=== PATIENT | male | born 2005 | race African-American/Black ===

== ENCOUNTER 2024-01-11 21:00 | Outpatient (CLI) | payer OTHER, SELFPAY | END 2024-01-11 21:01 | disposition home or self-care (01) | LOC: AMB 01-21 03:12 | PROVIDERS: Visit Provider Family Medicine | DX: S09.90XA Unspecified injury of head, initial encounter (principal); W03.XXXA Other fall on same level due to collision with another person, initial encounter; Y92.328 Other athletic field as the place of occurrence of the external cause | CPT/HCPCS: A0425; A0427 ==

== ENCOUNTER 2024-01-11 21:35 | Emergency (ER) | payer OTHER, SELFPAY ==
--- NOTE | 2024-01-11 21:40 | CRLHL7_ITS ---
For Patients: As a result of the Cures Act, medical imaging exams and procedure reports are released immediately into your electronic medical record. You may view this report before your referring provider. If you have questions, please contact your health care provider. Indication: Altered mental status, sporting head injury Technique: Noncontrast CT through the head with multiplanar reformats Comparison: None Findings: Brain: No acute hemorrhage. No acute infarct. No significant mass effect or midline shift. No gross evidence of a mass lesion or cerebral edema. Ventricles: No acute abnormality appreciated. Orbits, sinuses, mastoids: No acute abnormality appreciated. Calvarium and soft tissues: No acute abnormality appreciated. Impression: No acute abnormality appreciated. Please note that all CT scans at this facility use dose modulation, iterative reconstruction, and/or weight-based dosing when appropriate to reduce radiation dose to as low as reasonably achievable. Dictated by Preston Velásquez MD @ 01/11/2024 10:08:56 PM (Electronically Signed)
--- NOTE | 2024-01-11 21:40 | CRLHL7_ITS ---
For Patients: As a result of the Cures Act, medical imaging exams and procedure reports are released immediately into your electronic medical record. You may view this report before your referring provider. If you have questions, please contact your health care provider. Indication: Altered mental status, sporting head injury Technique: Noncontrast CT through the cervical spine with multiplanar reformats Comparison: None Findings: Alignment: Nonspecific reversal of the normal cervical lordotic curvature with no acute malalignment appreciated. Bones: No acute fracture. No lytic or blastic lesion. Cervical levels: No acute abnormality appreciated. Soft tissues: No acute abnormality appreciated. Impression: No acute abnormality appreciated. Please note that all CT scans at this facility use dose modulation, iterative reconstruction, and/or weight-based dosing when appropriate to reduce radiation dose to as low as reasonably achievable. Dictated by Preston Velásquez MD @ 01/11/2024 10:10:18 PM (Electronically Signed)
[2024-01-11 21:42] VITALS: BP 130/72; PULSE 79; RESP 20; TEMP 36.6; O2SAT 99; BMI 25.8
[2024-01-11 22:17] VITALS: BP 132/76; PULSE 67; RESP 20; O2SAT 99
[2024-01-11 22:30] VITALS: BP 124/72; PULSE 74; RESP 20; TEMP 36.6; O2SAT 99
[2024-01-11 22:31] VITALS: O2SAT 99
--- NOTE | 2024-01-22 13:32 | ED_ITS ---
HPI - General Adult General Chief complaint: Head Injury/Pain Stated complaint: Head trauma Time Seen by Provider: 01/11/24 21:39 History of Present Illness HPI narrative: CC: Head Injury, + LOC pt. got hit in the back of head by another player playing soccer. + LOC . gcs 14 on triage. denies n/v, fevers. TTA called. 18-year-old young man presenting to the emergency department via EMS. TTA called. Was playing soccer and struck in the back of the head somehow by another player. Collapsed and there appears to have been some degree of loss of consciousness. Duration unclear. Mechanism of injury actually not able to be described to me completely. No seizure-like activity described. Mentation has not been clearing. I understand generally in good health. This was reviewed later with family. Related Data Home Medications ?Medication ?Instructions ?Recorded ?Confirmed No Known Home Medications 01/11/24 01/11/24 Allergies Allergy/AdvReac Type Severity Reaction Status Date / Time No Known Drug Allergies Allergy Verified 01/11/24 21:56 Review of Systems Status of ROS: Reports: unobtainable due to mental status [facility] Medical History (Updated 01/11/24 @ 22:25 by Chidi Garza, RN) No significant past medical history Surgical History (Updated 01/11/24 @ 22:25 by Chidi Garza RN) No significant past surgical history Social History Smoking Status: Never smoker Second hand tobacco smoke exposure: No How often do you have a drink containing alcohol: never AUDIT-C Alcohol total score: 0 Non-prescribed substance use: denies use Exam Narrative: Exam Narrative: Primary survey Vitals are noted. He is breathing easily supporting on airway. Is obtunded. No verbal responses. Generally keeping his eyes closed but does open spontaneously. No bleeding evidence. GCS of 14. Pupils are equal, 6 mm and appropriately responsive and ac commodating. Cranial nerves 2-12 to be intact. Secondary survey Head appears to be free of injury. Ear canals are free of fluid. C-collar in place. No apparent pain to palpation of the neck. Dentition appears intact. No blood in the mouth. Back is no pain and no deformity or injury appreciated Chest is without apparent tenderness or deformity. Lungs are clear with breath sounds throughout. No supraclavicular crepitus. Heart in regular rate and rhythm without murmur Abdomen is flat soft and nontender. No mcdonald of trauma. Is moving all extremities without apparent difficulty. No unusual abrasions. Const: Documenting provider has reviewed patient's vital signs: yes Course Vital Signs Vital signs: Initial Vital Signs Temperature 97.9 F 01/11/24 21:42 Temperature Source Temporal Artery Scan 01/11/24 21:42 Pulse Rate 79 01/11/24 21:42 Respiratory Rate 20 01/11/24 21:42 Blood Pressure 130/72 01/11/24 21:42 Blood Pressure Mean 91 01/11/24 21:42 Blood Pressure Position Supine 01/11/24 21:42 Pulse Oximetry 99 01/11/24 21:42 Oxygen Delivery Method Room Air 01/11/24 21:42 Vital Signs Temperature 97.9 F 01/11/24 21:42 Pulse Rate 79 01/11/24 21:42 Respiratory Rate 20 01/11/24 21:42 Blood Pressure 130/72 01/11/24 21:42 Pulse Oximetry 99 01/11/24 21:42 Oxygen Delivery Method Room Air 01/11/24 21:42 Temperature 97.9 F 01/11/24 22:30 Pulse Rate 74 01/11/24 22:30 Respiratory Rate 20 01/11/24 22:30 Blood Pressure 124/72 01/11/24 22:30 Pulse Oximetry 99 01/11/24 22:31 Oxygen Delivery Method Room Air 01/11/24 22:30 Medical Decision Making MDM Narrative Medical decision making narrative: Unclear mechanism of injury. Does appear to have been related to traumatic event. May have hit head on the ground. Clearly with altered mental status and I would assume some degree of concussion. Offering little during physical exam I think will need to scan head and neck. Monitor for clearing. Is moving all extremities. Head CT independently reviewed by me without apparent abnormality. Did review images of the cervical spine without acute findings. Radiology over-read below Technique: Noncontrast CT through the cervical spine with multiplanar reformats Comparison: None Findings: Alignment: Nonspecific reversal of the normal cervical lordotic curvature with no acute malalignment appreciated. Bones: No acute fracture. No lytic or blastic lesion. Cervical levels: No acute abnormality appreciated. Soft tissues: No acute abnormality appreciated. Impression: No acute abnormality appreciated. Over time of monitoring in the emergency department increasingly alert. Needed encouragement. Did note posterior head headache. Ultimately ambulatory from the ER with brothers. See patient discharge plan for further discussion Based on what I saw here rajesh, I would definitely avoid any physical activity where you could potentially fall hard or potentially hit your head over at least the next 2 weeks. Should focus on hydration and getting quality and regular sleep. Your brain needs both of these. Otherwise signs or symptoms of a concussion might be nausea or headache upon e xertion which can also be an indication to back off that level of activity and reassess in a week.? Concussion can also be represented by smoldering nausea or smoldering headache, difficulty with concentration, mood lability, general somnolence, sense of persistent fog or dizziness/lightheadedness.? If these symptoms are becoming persistently apparent and continuing beyond 7-10 days, be re-evaluated for further recommendations. Medical Records Medical records narrative: No medical records available for review but when brothers arrive confirm generally healthy. Critical Care Time Critical Care Time Critical Care Time: Yes Attestation: The patient required my highest level preparedness to intervene emergently and I personally spent this critical care time directly and personally managing the patient. This critical care time included: Obtaining a history; Examining the patient; Pulse oximetry; Ordering and reviewing of studies; Arranging urgent treatment with development of a management plan; Evaluation of patients response to treatment; Frequent reassessment discussions with other providers. This critical care time was performed to assess and manage the high probability of imminent life-threatening deterioration that could result in multiorgan failure. It was exclusive of separate billable procedures and treating other patients and teaching time. Total Critical Care Time in Minutes: 45 Discharge Plan Discharge Clinical Impression: Closed head injury, Concussion Patient Disposition: Home w/ Parent or Adult Condition: Improved Additional Instructions: Based on what I saw here rajesh, I would definitely avoid any physical activity where you could potentially fall hard or potentially hit your head over at least the next 2 weeks. Should focus on hydration and getting quality and regular sleep. Your brain needs both of these. Otherwise signs or symptoms of a concussion might be nausea or headache upon exertion which can also be an indication to back off that level of activity and reassess in a week.? Concussion can also be represented by smoldering nausea or smoldering headache, difficulty with concentration, mood lability, general somnolence, sense of persistent fog or dizziness/lightheadedness.? If these symptoms are becoming persistently apparent and continuing beyond 7-10 days, be re-evaluated for further recommendations. Prescriptions: No Action No Known Home Medications Follow Up/Referrals: Provider,Not a Local [Primary Care Provider] - Stand Alone Forms: [employer] Info Instructions
== END 2024-01-11 22:31 | disposition home or self-care (01) ==
PROVIDERS: Emergency Provider Family Medicine
DX: S06.0X0A Concussion without loss of consciousness, initial encounter (principal); W50.0XXA Accidental hit or strike by another person, initial encounter; Y93.66 Activity, soccer
CPT/HCPCS: 70450; 72125; 94761; 99291; G0390